=== PATIENT | female | born 1990 | race Caucasian/White ===

== ENCOUNTER 2017-08-24 05:13 | Day surgery (SDC) | payer BC ==
[2017-08-18 13:20] VITALS: BMI 28.1
--- NOTE | 2017-08-24 01:03 | HP ---
History & Physical Update - History History: No Change - Physical Physical: No Change - Assessment Assessment: No Change - Plan Plan: No Change
[~2017-08-24 05:13] MED LIST: ACETAMINOPHEN 325 MG TABLET (FP) PO PRN; IBUPROFEN 400 MG TABLET (FP) PO PRN
[2017-08-24] MEDS ORDERED: PROPOFOL 20 ML ONE ×2 (10:51)
[2017-08-24] MEDS ORDERED: LIDOCAINE HCL/PF 2% SDV 5ML VIAL ONE (10:51)
[2017-08-24] MEDS ORDERED: MIDAZOLAM HCL 2 MG/2 ML SINGLE DOSE VIAL ONE (10:51)
[2017-08-24] MEDS ORDERED: DEXAMETHASONE SOD PHOSPHATE 4 MG/1 ML VIAL ONE (11:11)
[2017-08-24] MEDS ORDERED: KETOROLAC TROMETHAMINE 30 MG/1 ML VIAL ONE (11:37)
[2017-08-24] MEDS ORDERED: ACETAMINOPHEN 1000 MG/100 ML VIAL (NON FORMULARY) IVPB PRN (11:42)
[2017-08-24] MEDS ORDERED: oxyCODONE HCL 5 MG TABLET PO PRN (11:42)
[2017-08-24] MEDS ORDERED: ONDANSETRON 4 MG/2 ML VIAL IVPUSH PRN (11:42)
[2017-08-24] MEDS ORDERED: LACTATED RINGERS SOLUTION 1,000 ML IV SCH (11:45)
--- NOTE | 2017-08-24 12:03 | OP ---
Operative Note - Note: Operative Date: 08/24/17 Pre-Operative Diagnosis: Endometrial Polyps. Abnormal uterine bleeding Operation: Hysteroscopic myomectomy. Suction DC Post-Operative Diagnosis: Same as Pre-op Surgeon: Susana Wright Estimated Blood Loss (mls): 30 Operative Report Dictated: Yes
[2017-08-24 13:35] VITALS: TEMP 98.2
[2017-08-24 13:53] VITALS: BP 139/77; PULSE 69
--- NOTE | 2017-08-24 19:12 | OP ---
DATE OF OPERATION: 08/24/2017 PREOPERATIVE DIAGNOSES: Endometrial polyps and abnormal uterine bleeding. OPERATION: Hysteroscopic myomectomy and suction dilatation and curettage. POSTOPERATIVE DIAGNOSES: Endometrial polyps and abnormal uterine bleeding. SURGEON: Susana Wright MD ANESTHESIA: General, Argenis Pierce MD. DESCRIPTION OF PROCEDURE: Patient was taken to the operating room, placed in dorsal lithotomy position, prepped and draped in usual sterile fashion. A timeout was performed in accordance with hospital regulation. A speculum was placed in the vagina. Anterior lip of the cervix was grasped with single-tooth tenaculum. Cervix was then dilated to accommodate the operative hysteroscope. Endometrial polyps were seen. Numerous endometrial polyps had been seen. Cautery and cutting of the endometrial polyps were done. Suction D&C was then performed. All polyps were then removed. Cavity was noted to be clean. All instruments were then removed. Estimated blood loss: 30 mL. Elvira NUNEZ/[id number]
--- NOTE | 2017-08-25 11:56 | PATH ---
Surgical Pathology Report Patient Name: ERICA TONY [facility]. Rec. #: [id number] /Age/Gender: 1990 (Age: 27) / F Account: [id number] Location: [facility] SURGICAL Taken: 08/24/2017 Received: 08/24/2017 Reported: 08/25/2017 Physicians: Susana Wright M.D. Specimen(s) Received POLYP, CERVICAL ENDOMETRIAL Clinical History Menorrhagia, submucous myoma Final Diagnosis UTERUS, "POLYPS", HYSTEROSCOPIC MYOMECTOMY, SUCTION DILATATION AND CURETTAGE: POLYPOID FRAGMENTS OF EARLY SECRETORY ENDOMETRIUM AND FEW FRAGMENTS OF SMOOTH MUSCLE CONSISTENT WITH SUBMUCOSAL LEIOMYOMA. Electronically Signed Melody Fortune M.D. Gross Description Received in formalin labeled "polyps," is a 3.7 x 3.5 x 0.4 cm aggregate of rizo pink soft tissue fragments. The formalin is filtered and the specimen is entirely submitted in 3 cassettes. /08/24/2017 saudi08/24/2017
== END 2017-08-24 13:53 | disposition home or self-care (01) ==
LOC: JASU-SURG 05:13
PROVIDERS: ATTEND Obstetrics & Gynecology
PROC: 0UB98ZX Excision of Uterus, Via Natural or Artificial Opening Endoscopic, Diagnostic (ICD-10-PCS; principal; 2017-08-24 11:00)
PROC: 0UDB7ZX Extraction of Endometrium, Via Natural or Artificial Opening, Diagnostic (ICD-10-PCS; 2017-08-24 11:00)
DX: N84.0 Polyp of corpus uteri (principal); N93.9 Abnormal uterine and vaginal bleeding, unspecified
CPT/HCPCS: 36415; 84703; 86850; 86900; 86901; 94760

== ENCOUNTER 2018-08-03 05:44 | Day surgery (SDC) | payer BC ==
[2018-08-03] MEDS ORDERED: IRON SUCROSE INJECTION 200 MG in SODIUM CHLORIDE 100 ML IVPB ONE (12:00)
[2018-08-03 17:55] VITALS: TEMP 97.8
[2018-08-03 17:59] VITALS: BP 142/85; PULSE 63
== END 2018-08-03 17:35 | disposition home or self-care (01) ==
LOC: JONCCHEMO 05:44 → J7W 16:12 → JONCCHEMO 17:35
PROVIDERS: ATTEND Internal Medicine Hematology & Oncology
PROC: 3E033GC Introduction of Other Therapeutic Substance into Peripheral Vein, Percutaneous Approach (ICD-10-PCS; principal; 2018-08-03)
DX: D50.9 Iron deficiency anemia, unspecified (principal)
CPT/HCPCS: 96365; J1756

== ENCOUNTER 2018-08-17 07:09 | Day surgery (SDC) | payer BC ==
[2018-08-17] MEDS ORDERED: IRON SUCROSE INJECTION 200 MG in SODIUM CHLORIDE 100 ML IVPB ONE (10:00)
[2018-08-17 18:10] VITALS: BP 126/73; PULSE 62; TEMP 97.3
== END 2018-08-17 17:45 | disposition home or self-care (01) ==
LOC: JONCCHEMO 07:09 → JONCNONCHE 07:09 → J7W 17:00 → JONCNONCHE 17:45
PROVIDERS: ATTEND Internal Medicine Hematology & Oncology
PROC: 3E033GC Introduction of Other Therapeutic Substance into Peripheral Vein, Percutaneous Approach (ICD-10-PCS; principal; 2018-08-17)
DX: D50.9 Iron deficiency anemia, unspecified (principal)
CPT/HCPCS: 96365; J1756

== ENCOUNTER 2018-09-07 07:06 | Day surgery (SDC) | payer BC ==
[2018-09-07] MEDS ORDERED: IRON SUCROSE INJECTION 200 MG in SODIUM CHLORIDE 100 ML IVPB ONE (10:00)
[2018-09-07 11:11] VITALS: BP 121/82; PULSE 71; TEMP 97.9
== END 2018-09-07 11:15 | disposition home or self-care (01) ==
LOC: JONCNONCHE 07:06 → J7W 09:59 → JONCNONCHE 11:15
PROVIDERS: ATTEND Internal Medicine Hematology & Oncology
PROC: 3E033GC Introduction of Other Therapeutic Substance into Peripheral Vein, Percutaneous Approach (ICD-10-PCS; principal; 2018-09-07)
DX: D50.9 Iron deficiency anemia, unspecified (principal)
CPT/HCPCS: 96365; J1756

== ENCOUNTER 2018-09-21 07:22 | Day surgery (SDC) | payer BC ==
[~2018-09-21 07:22] MED LIST changes: -ACETAMINOPHEN 325 MG TABLET (FP) PO PRN; -IBUPROFEN 400 MG TABLET (FP) PO PRN; +IRON SUCROSE INJECTION 200 MG in SODIUM CHLORIDE 100 ML IVPB ONE
[2018-09-21] MEDS ORDERED: IRON SUCROSE INJECTION 200 MG in SODIUM CHLORIDE 100 ML IVPB ONE (12:00)
[2018-09-21 15:44] VITALS: TEMP 97.7
[2018-09-21 15:45] VITALS: BP 136/74; PULSE 60
== END 2018-09-21 15:15 | disposition home or self-care (01) ==
LOC: JONCNONCHE 07:22 → J7W 14:42 → JONCNONCHE 15:15
PROVIDERS: ATTEND Internal Medicine Hematology & Oncology
PROC: 3E033GC Introduction of Other Therapeutic Substance into Peripheral Vein, Percutaneous Approach (ICD-10-PCS; principal; 2018-09-21)
DX: D50.9 Iron deficiency anemia, unspecified (principal)
CPT/HCPCS: 96365; J1756

== ENCOUNTER 2018-11-02 11:50 | Day surgery (SDC) | payer BC ==
[2018-11-01 12:28] VITALS: BMI 28.1
[2018-11-02] MEDS ORDERED: ONDANSETRON 4 MG/2 ML VIAL IVPUSH PRN ×2 (12:02→13:10)
[2018-11-02] MEDS ORDERED: oxyCODONE HCL 5 MG TABLET PO PRN ×4 (12:02→13:10)
[2018-11-02] MEDS ORDERED: LACTATED RINGERS SOLUTION 1,000 ML IV SCH ×2 (12:15→13:15)
--- NOTE | 2018-11-02 13:44 | HP ---
Admitting History and Physical - Primary Care Physician PCP: Susana Wright - Admission Chief Complaint: Left vulvar/labiocrural mass History Source: Patient Limitations to Obtaining History: No Limitations - Past Medical History [employer] OPERATOR: No: Alzheimer's, CVA, Dementia, Migraine, Multiple Sclerosis, Peripheral Neuropathy, Parkinson's, Seizure, Syncope, TIA, Vertigo, Other Cardiovascular: No: AFIB, Aneurysm, Aortic Insufficiency, Aortic Stenosis, CAD, CHF, Deep Vein Thrombosis, HTN, Hyperlipdemia, MT, Mitral Insufficiency, Mitral Stenosis, Murmur, Pulmonary Hypertension, Other Pulmonary: No: Asthma, Bronchitis, Cancer, COPD, O2 Dependent, Pneumonia, Previously Intubated, Pulmonary Embolus, Pulmonary Fibrosis, Sleep Apnea, Other Gastrointestinal: No: Ascites, Cancer, Constipation, Crohn's Disease, Diverticulitis, Diverticulosis, Esophageal Varices, Gastritis, GERD, GI Bleed, Hemorrhoids, Hiatal Hernia, Inflamatory Bowel Disease, Irritable Bowel Disease, Pancreatitis, Peptic Ulcer Disease, Ulcerative Colitis, Other Hepatobiliary: No: Cirrhosis, Cholelithiasis, Cholecystitis, Choledocholithiasis , Hepatitis A, Hepatitis B, Hepatitis C, Other Renal/: No: Renal Failure, Renal Inusuff, BPH, Cancer, Hematuria, Hemodialysis , Neurogenic Bladder, Renal Calculi, UTI, Other Reproductive: No: Ectopic , Endometriosis, Fibroids, PID, Polycystic Ovary Syndrome, Postmenopausal, Other ...LMP: 10/11/18 ...: No Heme/Onc: No: Anemia, B12 Deficiency, Bleeding Disorder, Cancer, Current Chemotherapy, Current Radiation Therapy, Hemochromatosis, Hypercoaguable State, Myeloproliferative Synd, Sickle Cell Disease, Sickle Cell Trait, Thrombocytopenia, Other Infectious Disease: No: AIDS, C-Diff, Herpes Zoster, HIV, MRSA, STD's, Tuberculosis, VREF, Other Psych: No: Addictions, Anxiety, Bipolar, Depression, Panic, Psychosis, Schizophrenia, Other - Smoking History Smoking history: Never smoked Have you smoked in the past 12 months: No - Alcohol/Substance Use Hx Alcohol Use: No Home Medications - Allergies Allergies/Adverse Reactions: Allergies Allergy/AdvReac Type Severity Reaction Status Date / Time No Known Drug Allergies Allergy Verified 11/02/18 12:29 SEASONAL Allergy Uncoded 11/02/18 12:29 - Home Medications Home Medications: Ambulatory Orders Ranitidine [Zantac -] 150 mg PO PRN PRN 11/01/18 Review of Systems - Review of Systems Constitutional: denies: No Symptoms, Chills, Diaphoresis, Fever, Lethargy, Loss of Appetite, Malaise, Night Sweats, Unintentional Wgt. Loss, Weakness, Other Eyes: denies: No Symptoms, Blind Spots, Blurred Vision, Double Vision, Eye Pain , Floaters, Photophobia, Recent Change in Vision, Other HENT: denies: No Symptoms, Difficult Swallowing, Ear Discharge, Ear Pain, Epistaxis, Gingival Bleeding, Hearing Loss, Mouth Swelling, Nasal Congestion, Ocular Prosthesis, Throat Pain, Toothache, Ringing in Ears, Other Neck: denies: No Symptoms, Decreased ROM, Lumps, Pain on Movement, Stiffness, Swollen Glands, Tenderness, Other Cardiovascular: denies: No Symptoms, Chest Pain, Edema, Palpitations, Shortness of Breath, Other Gastrointestinal: denies: No Symptoms, Abdominal Pain, Bloating, Constipation, Diarrhea, Dysphagia, Indigestion, Melena, Nausea, Rectal Bleeding, Vomiting, Vomiting Blood, Other Physical Examination Vital Signs: Vital Signs Temperature 98.2 F 11/02/18 12:27 Pulse Rate 69 11/02/18 12:27 Respiratory Rate 16 11/02/18 12:27 Blood Pressure 114/65 11/02/18 12:27 O2 Sat by Pulse Oximetry (%) 99 11/02/18 12:27 Constitutional: Yes: Well Nourished, No Distress, Calm Eyes: Yes: WNL, Conjunctiva Clear, EOM Intact HENT: Yes: WNL, Atraumatic, Normocephalic Neck: Yes: WNL, Supple, Trachea Midline Cardiovascular: Yes: WNL, Regular Rate and Rhythm Respiratory: Yes: WNL, Regular, CTA Bilaterally Gastrointestinal: Yes: WNL, Normal Bowel Sounds, Soft Musculoskeletal: Yes: WNL Extremities: Yes: WNL Problem List - Problems (1) Pelvic mass Code(s): R19.00 - INTRA-ABD AND PELVIC SWELLING, MASS AND LUMP, UNSP SITE Assessment/Plan 28 yo with left labiocrural mass. Plan for excision. R/B/I/A discussed with patient in detail. Post op care discussed. Ice packs, aleve and tylenol. Oxycodone only for severe BTP.
[2018-11-02] MEDS ORDERED: LIDOCAINE HCL 1%, 10 MG/ML (20ML VIAL) ONE (14:11)
[2018-11-02] MEDS ORDERED: BUPIVACAINE HCL/PF 0.5% (5MG/ML) 10 ML VIAL ONE (14:12)
[2018-11-02] MEDS ORDERED: ceFAZolin SODIUM 1 GM VIAL IVPB ONE (14:12)
--- NOTE | 2018-11-02 16:06 | OP ---
DATE OF OPERATION: 11/02/2018 PREOPERATIVE DIAGNOSIS: Left vulvar/labiocrural mass. POSTOPERATIVE DIAGNOSIS: Left vulvar/labiocrural mass. PROCEDURE: Left labiocrural mass excision. SURGEON: Zenaida Christian M.D. ANESTHESIA: LMA and local. ESTIMATED BLOOD LOSS: 20 Ml COMPLICATIONS: None. INDICATIONS: This is a 28-year-old who reports an increasing left vulvar/ labial curl mass, which was bothersome when sitting and walking. A CT scan was performed of the pelvis and upper thigh, which did not reveal any lesion. On exam, lesion appeared consistent with a lipoma. Patient was counseled regarding surgical management. Risks, benefits, indications and alternatives were discussed with the patient. All questions were answered, informed consent was signed. FINDINGS: On exam, an approximately 6 cm mobile soft mass in the left labial curl area extending to the buttock. Upon incision of the subcutaneous fat, the lesion extended into the buttock area and into the gluteal area. At the end of the procedure, the entire mass was removed. The mass was approximately 8 x 10 cm. PROCEDURE: The patient was taken to the operating room and placed in the dorsal supine position. LMA anesthesia was obtained. She was placed in the dorsal lithotomy position in the Mervin stirrups and prepped and draped in the normal sterile fashion. Approximately 25 mL of 0.5% Marcaine with lidocaine was injected into the subcutaneous area and an incision was made with the 15 blade scalpel along the labiocrural fold. The subcutaneous tissue was opened with Bovie electrocautery until the capsule of the lipoma was encountered. The mass was grasped with the ring forceps and able to be brought exteriorized. It was noted to have muscle projections and lobules which were connected. These were removed in their entirety together and with extensive blunt dissection done digitally. The lipoma bed was cauterized with Bovie electrocautery for hemostasis. Excellent hemostasis was seen. The area was thoroughly irrigated with saline and the subcutaneous fat was closed with 3-0 Vicryl. The skin was closed with interrupted stitches of 3-0 Vicryl. An additional 1 cm firm lesion was noted on the right gluteal area consistent with a small abscess or old folliculitis. Marcaine with lidocaine was injected into this area and a small 5 mm incision was made with the 15 blade scalpel. There was no fluid that was able to be expressed. Excellent hemostasis was seen and at the end of the procedure, sponge, needle and instrument counts were correct x2 and the patient was awakened, LMA removed and transferred in stable condition to the PACU. Zenaida Christian M.D. [id number] MTDD
[2018-11-02] MEDS ORDERED: oxyCODONE HCL 5 MG TABLET ONE (17:13)
[2018-11-02] MEDS ORDERED: oxyCODONE HCL 5 MG TABLET PO ONE (17:15)
[2018-11-02 18:01] VITALS: BP 129/79; PULSE 74; TEMP 98
--- NOTE | 2018-11-04 14:10 | PATH ---
Surgical Pathology Report Patient Name: ERICA TONY [facility]. Rec. #: [id number] /Age/Gender: 1990 (Age: 28) / F Account: [id number] Location: AMBULATORY SURG Taken: 11/02/2018 Received: 11/03/2018 Reported: 11/04/2018 Physicians: Zenaida Christian MD Specimen(s) Received LEFT VULVAR/ LABIOCRURAL LIPOMA Clinical History Left vulvar/labiocrural mass Final Diagnosis Vulvar/ labiOCRURAL, lipoma, left, excision: Mature fibroadipose tissue consistent with lipoma. Electronically Signed Melody Fortune M.D. Gross Description Received in formalin labeled "left vulvar labiocrural lipoma," is 11.0 x 11.0 x 4.3 cm aggregate of yellow, lobulated adipose tissue. Sectioning reveals homogeneous yellow, smooth fat. No areas of hemorrhage or necrosis are identified. Sports Writer sections are submitted in 5 cassettes. /11/03/2018 [facility]/11/03/2018
== END 2018-11-02 18:00 | disposition home or self-care (01) ==
LOC: JASUSAT 11:50
PROVIDERS: ATTEND Obstetrics & Gynecology Gynecologic Oncology
PROC: 0JBC0ZZ Excision of Pelvic Region Subcutaneous Tissue and Fascia, Open Approach (ICD-10-PCS; principal; 2018-11-02 13:30)
DX: D17.72 Benign lipomatous neoplasm of other genitourinary organ (principal)
CPT/HCPCS: 84703; 88304-TC; 94760